=== PATIENT | female | born 1945 | race Caucasian/White ===

== ENCOUNTER 2016-11-27 22:25 | Emergency (ER) | payer OTHER, MEDICAID ==
[~2016-11-27] VITALS: Ht 160 cm; Wt 107.5 kg
[~2016-11-27 22:25] MED LIST: AMLO-218 PO; ATOR80TA75 PO; CARV25TA97 PO; CEPH-443 PO; FENO48TA4 PO; FURO-110 PO; GABA300C16 PO; GLIM4TAB55 PO; LEVO150T67 PO; LOSA100T7 PO; MTF1000T PO; NAPR-688 PO; OMEP20CA16 PO; SERT100T PO
[2016-11-27 22:30] VITALS: Ht 160 cm; Wt 107.5 kg
--- NOTE | 2016-11-28 03:47 | ERA ---
ER Documentation Chief Complaint Date/Time DATE: 11/28/16 TIME: 03:46 Chief Complaint Cough x2 week, HPI The patient is a 71-year-old female, presenting to the ER because of intermittent dry cough for the last 2 weeks, mostly mucous. She denies fever, chills, neck pain, chest pain, dyspnea, abdominal pain, vomiting, dysuria, diarrhea. She does not smoke or drink Past medical history: Diabetes mellitus, hypertension, dyslipidemia, hypothyroidism, panic disorder Past surgical history: Cholecystectomy, hysterectomy, 2 ROS All systems reviewed and are negative except as per history of present illness. Medications Home Meds Active Scripts Dextromethorphan Hb-Promethazine Hcl (Promethazine DM Syrup) 473 Ml Syrup, 10 ML PO Q6H Y for COUGH, #4 OZ Prov:KVNG WONG MD 11/28/16 Azithromycin* (Zithromax*) 250 Mg Tablet, 250 MG PO .ZPACK DIRECTED, #6 TAB TAKE 500 MG (2 TABS) THE FIRST DAY THEN 250 MG (1 TAB) DAYS 2-5 Prov:KVNG WONG MD 11/28/16 Furosemide* (Lasix*) 20 Mg Tablet, 20 MG PO DAILY, #7 TAB Prov:ROCHELLE CAT MD 03/09/16 Cephalexin* (Keflex*) 500 Mg Capsule, 500 MG PO TID for 7 Days, CAP Prov:ROCHELLE CAT MD 03/09/16 Reported Medications Gabapentin* (Gabapentin*) 300 Mg Capsule, 300 MG PO HS, #60 CAP 03/09/16 Amlodipine Besylate* (Norvasc*) 10 Mg Tablet, 10 MG PO DAILY, TAB 03/09/16 Glimepiride* (Amaryl*) 4 Mg Tablet, 4 MG PO WITH BREAKFAST, TAB 03/09/16 Losartan Potassium* (Losartan Potassium*) 100 Mg Tablet, 100 MG PO DAILY, TAB 03/09/16 Carvedilol* (Coreg*) 25 Mg Tablet, 25 MG PO BID, #60 TAB 03/09/16 Atorvastatin* (Atorvastatin*) 80 Mg Tablet, 80 MG PO QHS, #30 TAB 03/09/16 Omeprazole* (Omeprazole*) 20 Mg Capsule.dr, 20 MG PO DAILY, #30 CAP 03/09/16 Naproxen* (Naproxen*) 500 Mg Tablet, 500 MG PO BID Y for PAIN, TAB 03/09/16 Metformin* (Glucophage*) 1,000 Mg Tablet, 1000 MG PO BID, #60 TAB 03/09/16 Fenofibrate Nanocrystallized* (Fenofibrate*) 48 Mg Tablet, 54 MG PO DAILY, TAB 03/09/16 Sertraline Hcl* (Zoloft*) 100 Mg Tablet, 100 MG PO DAILY, #30 TAB 03/09/16 Levothyroxine Sodium* (Levothyroxine Sodium*) 150 Mcg Tablet, 150 MCG PO BEFORE BREAKFAST, #30 TAB 03/09/16 Allergies Allergies: Coded Allergies: diclofenac (Verified Allergy, Intermediate, vomiting, 11/27/16) Uncoded Allergies: NKDA (Allergy, Mild, 02/03/11) PMhx/Soc History of Surgery: Yes (CHOLECYSTECTOMY, HYSTERECTOMY, ) Anesthesia Reaction: No Hx Neurological Disorder: No Hx Respiratory Disorders: No Hx Cardiac Disorders: Yes (HTN, HIGH CHOLESTEROL ) Hx Psychiatric Problems: Yes (PANIC ATTACKS) Hx Miscellaneous Medical Probl: Yes (DM, ARTHRITIS ) Hx Alcohol Use: No Hx Substance Use: No Hx Tobacco Use: No Physical Exam Vitals Vital Signs Date Time Temp Pulse Resp B/P Pulse Ox O2 Delivery O2 Flow Rate FiO2 11/28/16 05:25 98.4 58 18 122/65 99 Room Air 11/28/16 04:40 60 20 98 21 11/28/16 04:22 57 16 128/51 99 Room Air 11/28/16 03:49 98.4 82 20 156/69 98 Room Air 11/27/16 22:30 98.4 74 20 177/77 98 Physical Exam Const: No acute distress. Head: Atraumatic. Eyes: Normal Conjunctiva. ENT: Normal External Ears, Nose and Mouth. Neck: Full range of motion. No meningismus. Resp: minimal Expiratory wheeze Cardio: Regular rate and rhythm, no murmurs. Abd: Soft, non distended, normal bowel sounds, non tender. Skin: No petechiae or rashes. Back: No midline or flank tenderness. Ext: No cyanosis, or edema. Neur: Awake and alert. No focal deficit Psych: Normal Mood and Affect. Results 24 hrs Current Medications Medications (Trade) Dose Ordered Sig/Chantel Route PRN Reason Start Time Stop Time Status Last Admin Dose Admin Levalbuterol (Xopenex Neb) 1.[address] [facility] 11/28/16 04:30 11/28/16 04:31 DC 11/28/16 04:42 Ipratropium [place] (Atrovent 0.02% (Neb)) 0.[address] [facility] 11/28/16 04:30 11/28/16 04:31 DC 11/28/16 04:42 Procedures/[place] [id number] Radiology Main Line: [phone] DIAGNOSTIC IMAGING REPORT Patient: OMERO FARAH : 1945 Age: 71 Sex: F MR #: [id number] DOS: 11/28/16 0417 Ordering MD: KVNG WONG MD Location: FTE Room/Bed: PROCEDURE: XR Chest. CLINICAL INDICATION: Cough and fever TECHNIQUE: An AP view of the chest was obtained. COMPARISON: Chest x-ray dated 03/09/2016 FINDINGS: There is prominence of the interstitial markings. No pleural effusion or pneumothorax is seen. The cardiomediastinal silhouette is mildly enlarged . Calcifications are seen within the aortic arch. The osseous structures demonstrate senescent changes. IMPRESSION: 1. Mild prominence of the interstitial markings, may reflect mild underlying interstitial edema or chronic lung changes. Overall, no significant interval change. 2. Mild cardiomegaly and aortic atherosclerosis. RPTAT: HH .Maria Del Rosario Cortes MD, MD Date Time Electronically viewed and signed by .Maria Del Rosario Cortes MD, MD on 11/28/2016 05 :09 .G/ CC: KVNG WONG MD MEDICAL MAKING DECISION: The patient is a 71-year-old female, presenting with acute bronchitis, was treated with Xopenex 1.25 mg and Atrovent 0.5 mg with good response. The differential diagnoses considered include but are not limited to asthma, COPD, pneumonia, pulmonary embolus, pleural effusion, congestive heart failure. Departure Diagnosis: Primary Impression: Bronchitis Condition: Good Comments She was discharged with Zithromax, promethazine dextromethorphan I discussed the findings with the patient. I advised the patient to follow-up with the primary physician in about 1-2 days, sooner if needed and return if any concern. KVNG WONG MD Nov 28, 2016 03:47
[2016-11-28] MEDS ORDERED: IPRATROPIUM (NEB) 0.5 MG/2.5 ML AMP HHN ONE (04:30)
[2016-11-28] MEDS ORDERED: LEVALBUTEROL (NEB) 1.25 MG/0.5 ML AMP HHN ONE (04:30)
--- NOTE | 2016-11-28 05:09 | RADRPT ---
PROCEDURE: XR Chest. CLINICAL INDICATION: Cough and fever TECHNIQUE: An AP view of the chest was obtained. COMPARISON: Chest x-ray dated 03/09/2016 FINDINGS: There is prominence of the interstitial markings. No pleural effusion or pneumothorax is seen. Th e cardiomediastinal silhouette is mildly enlarged . Calcifications are seen within the aortic arch. The osseous structures demonstrate senescent changes. IMPRESSION: 1. Mild prominence of the interstitial markings, may reflect mild underlying interstitial edema or chronic lung changes. Overall, no significant interval change. 2. Mild cardiomegaly and aortic atherosclerosis. RPTAT: HH .Maria Del Rosario Cortes MD, MD Date Time Electronically viewed and signed by .Maria Del Rosario Cortes MD, on 11/28/2016 05:09 .Reta/
[2016-11-28] MEDS ORDERED: AZIT250T94 PO (05:18)
[2016-11-28] MEDS ORDERED: D-ME473S18 PO (05:18)
[2016-11-28 05:25] VITALS: BP 122/65; PULSE 58; RESP 18; TEMP 98.4
== END 2016-11-28 05:25 | disposition home or self-care (01) ==
LOC: E/R 22:25 → FTE 11-28 05:25
DX: J20.9 Acute bronchitis, unspecified (principal); I10 Essential (primary) hypertension; E11.9 Type 2 diabetes mellitus without complications; E03.9 Hypothyroidism, unspecified; Z79.84 Long term (current) use of oral hypoglycemic drugs
CPT/HCPCS: 71010; 94664

== ENCOUNTER 2017-07-22 18:17 | Emergency (ER) | payer OTHER, MEDICAID ==
[~2017-07-22] VITALS: Ht 160 cm; Wt 100.0 kg
[~2017-07-22 18:17] MED LIST changes: +AZIT250T94 PO; +D-ME473S18 PO
[2017-07-22 18:19] VITALS: Ht 160 cm; Wt 100.0 kg
[2017-07-22] MEDS ORDERED: ACET500C5 PO (20:45)
[2017-07-22] MEDS ORDERED: AMOX1TAB10 PO (20:45)
--- NOTE | 2017-07-23 00:23 | ERD ---
ER Documentation Chief Complaint Chief Complaint HAD TOOTH EXTRACTION 2 WEEKS AGO, HAS STILL ALIZA AT THE SITE HPI 72-year-old female patient with a past medical history of diabetes and hypertension, thyroid problems, gastritis, arthritis, presents to the ED complaining of left-sided dental pain that started intermittently for the past 15 days. Reports that she saw a dentist and had a tooth extraction 2 weeks ago and still has pain at the site. Reports that she did see the dentist and they recommended to see a dental specialist. States that she finished taking the amoxicillin and was taking Advil however reports that it did not provide any relief. Denies any fever, chest pain, shortness of breath, nausea, vomiting, diarrhea, dyspnea on exertion, orthopnea. ROS All systems reviewed and are negative except as per history of present illness. Medications Home Meds Active Scripts Acetaminophen* (Tylophen*) 500 Mg Capsule, 1 CAP PO Q6H Y for PAIN AND OR ELEVATED TEMP, #20 CAP Prov:TOSHIA CERVANTES PA-C 07/22/17 Amoxicillin/Potassium Clav (Amox-Clav 875-125 mg Tablet) 875-125 mg Tab, 1 TAB PO BID for 7 Days, #14 TAB Prov:TOSHIA CERVANTES PA-C 07/22/17 Dextromethorphan Hb-Promethazine Hcl (Promethazine DM Syrup) 473 Ml Syrup, 10 ML PO Q6H Y for COUGH, #4 OZ Prov:KVNG WONG MD 11/28/16 Azithromycin* (Zithromax*) 250 Mg Tablet, 250 MG PO .ZPACK DIRECTED, #6 TAB TAKE 500 MG (2 TABS) THE FIRST DAY THEN 250 MG (1 TAB) DAYS 2-5 Prov:KVNG WONG MD 11/28/16 Furosemide* (Lasix*) 20 Mg Tablet, 20 MG PO DAILY, #7 TAB Prov:ROCHELLE CAT MD 03/09/16 Cephalexin* (Keflex*) 500 Mg Capsule, 500 MG PO TID for 7 Days, CAP Prov:ROCHELLE CAT MD 03/09/16 Reported Medications Gabapentin* (Gabapentin*) 300 Mg Capsule, 300 MG PO HS, #60 CAP 03/09/16 Amlodipine Besylate* (Norvasc*) 10 Mg Tablet, 10 MG PO DAILY, TAB 03/09/16 Glimepiride* (Amaryl*) 4 Mg Tablet, 4 MG PO WITH BREAKFAST, TAB 03/09/16 Losartan Potassium* (Losartan Potassium*) 100 Mg Tablet, 100 MG PO DAILY, TAB 03/09/16 Carvedilol* (Coreg*) 25 Mg Tablet, 25 MG PO BID, #60 TAB 03/09/16 Atorvastatin* (Atorvastatin*) 80 Mg Tablet, 80 MG PO QHS, #30 TAB 03/09/16 Omeprazole* (Omeprazole*) 20 Mg Capsule.dr, 20 MG PO DAILY, #30 CAP 03/09/16 Naproxen* (Naproxen*) 500 Mg Tablet, 500 MG PO BID Y for PAIN, TAB 03/09/16 Metformin* (Glucophage*) 1,000 Mg Tablet, 1000 MG PO BID, #60 TAB 03/09/16 Fenofibrate Nanocrystallized* (Fenofibrate*) 48 Mg Tablet, 54 MG PO DAILY, TAB 03/09/16 Sertraline Hcl* (Zoloft*) 100 Mg Tablet, 100 MG PO DAILY, #30 TAB 03/09/16 Levothyroxine Sodium* (Levothyroxine Sodium*) 150 Mcg Tablet, 150 MCG PO BEFORE BREAKFAST, #30 TAB 03/09/16 Allergies Allergies: Coded Allergies: diclofenac (Verified Allergy, Intermediate, vomiting, 11/27/16) PMhx/Soc History of Surgery: Yes (Cholecystectomy,Hysterectomy,) Anesthesia Reaction: No Hx Neurological Disorder: No Hx Respiratory Disorders: No Hx Cardiac Disorders: Yes (HTN) Hx Psychiatric Problems: Yes (Anxiety) Hx Miscellaneous Medical Probl: Yes (DM,Arthritis,Hypothyroidism) Hx Alcohol Use: No Hx Substance Use: No Hx Tobacco Use: No Smoking Status: Never smoker Physical Exam Vitals Vital Signs Date Time Temp Pulse Resp B/P Pulse Ox O2 Delivery O2 Flow Rate FiO2 07/22/17 18:19 97.7 73 18 155/67 99 Physical Exam Const: Mrs-eza-[id number], well-nourished. In no acute distress. Head: Atraumatic, normocephalic Eyes: Normal Conjunctiva without injection. No purulent discharge. PERRL. EOMI ENT: Normal external ear. Ear canal without erythema. Tympanic membrane pearly mendez without effusion or bulging. Nasal canal clear with normal turbinates. Moist oropharynx without tonsillar exudates. Non-erythematous pharynx. Uvula midline. No drooling. No trismus. Erythema noted at the gumline near the left sided mandibular molars. No fluctuance. Tooth extraction noted. No bleeding noted. Neck: Full range of motion. No meningismus. No cervical lymphadenopathy. Resp: Clear to auscultation bilaterally. No wheezing, rhonchi, rales, or crackles. No accessory muscle use. No retractions. Cardio: Regular rate and rhythm. No murmurs, rubs or gallops. Abd: Soft, non tender, non distended. Normal bowel sounds. No palpable masses. No rebound tenderness. No guarding. Skin: No petechiae or rashes Back: No midline tenderness. No CVA tenderness. Ext: No cyanosis, or edema. Neur: Awake and alert. Psych: Normal Mood and Affect Procedures/MDM 72-year-old female patient with no significant past medical history presents to the ED complaining of a tooth extraction that occurred 2 weeks ago and still has pain at the site. Patient is afebrile nontoxic appearing. Patient has normal vital signs. Patient was given a prescription for Augmentin and Tylenol for her pain instructed to follow-up with a dental specialist tomorrow. Low suspicion for acute myocardial infarction, pneumothorax, pneumonia, cardiac tamponade, pulmonary embolism, pleural effusion, AAA, aortic dissection, Boerhaave's syndrome, cardiac dysrhythmias,meningitis, intracranial bleed, seizure, stroke, TIA or other emergent conditions. Patient is appropriate for outpatient antibiotics. Patient's physical exam include lungs which were clear to auscultation and a normal pulse oximetry. Bilateral ears pearly beltran. No tenderness to palpation of tragus or mastoid. Low suspicion for mastoiditis, otitis externa, otitis media. Patient is speaking in full sentences. There is a low suspicion for pneumonia, epiglottitis, croup, sinusitis, peritonsillar abscess, hands foot mouth disease, Quoc's angina, dental abscess, retropharyngeal abscess, meningitis, sepsis, acute abdomen or other emergent conditions. Follow up with dental specialist in 1-2 days. Instructed patient to return to the ED sooner for any worsening symptoms. Patient's questions were answered. Patient understood and agreed with discharge plan. Patient discharged stable. Departure Diagnosis: Primary Impression: Toothache Condition: Stable Patient Instructions: Dental Pain Referrals: [facility] YOU HAVE RECEIVED A MEDICAL SCREENING EXAM AND THE RESULTS INDICATE THAT YOU DO NOT HAVE A CONDITION THAT REQUIRES URGENT TREATMENT IN THE EMERGENCY DEPARTMENT. FURTHER EVALUATION AND TREATMENT OF YOUR CONDITION CAN WAIT UNTIL YOU ARE SEEN IN YOUR DOCTORS OFFICE WITHIN THE NEXT 1-2 DAYS. IT IS YOUR RESPONSIBILITY TO MAKE AN APPOINTMENT FOR FOLOW-UP CARE. IF YOU HAVE A PRIMARY DOCTOR --you should call your primary doctor and schedule an appointment IF YOU DO NOT HAVE A PRIMARY DOCTOR YOU CAN CALL OUR PHYSICIAN REFERRAL HOTLINE AT IF YOU CAN NOT AFFORD TO SEE A PHYSICIAN YOU CAN CHOSE FROM THE FOLLOWING [facility] [address] [facility]. [facility] [address] [facility]. [facility] [address] [facility] [facility] [address] [facility]. [facility] [address] [facility]. [facility]. [address] [facility]. [facility] YOU HAVE RECEIVED A MEDICAL SCREENING EXAM AND THE RESULTS INDICATE THAT YOU DO NOT HAVE A CONDITION THAT REQUIRES URGENT TREATMENT IN THE EMERGENCY DEPARTMENT. FURTHER EVALUATION AND TREATMENT OF YOUR CONDITION CAN WAIT UNTIL YOU ARE SEEN IN YOUR DOCTORS OFFICE WITHIN THE NEXT 1-2 DAYS. IT IS YOUR RESPONSIBILITY TO MAKE AN APPOINTMENT FOR FOLOW-UP CARE. IF YOU HAVE A PRIMARY DOCTOR --you should call your primary doctor and schedule and appointment IF YOU DO NOT HAVE A PRIMARY DOCTOR YOU CAN CALL OUR PHYSICIAN REFERRAL HOTLINE AT . IF YOU CAN NOT AFFORD TO SEE A PHYSICIAN YOU CAN CHOSE FROM THE FOLLOWING [facility] INSTITUTIONS: [facility] [address] [place] [address] [facility] [address] [place] [address] [facility] [address] [place] [address] [facility] URGENT CARE/SPECIALTIES [facility] DENTIST ([facility] walk in clinic) Additional Instructions: Visite a garcia especialista dental maana para un EXAMEN. Regrese a estas instalaciones si no se mejora stacy esperbamos o stacy le dijimos - fiebre, dificultad para tragar, dificultad para respirar, vmitos. TOSHIA CERVANTES PA-C Jul 23, 2017 00:23
== END 2017-07-22 21:11 | disposition home or self-care (01) ==
LOC: FTE 18:17
DX: K08.89 Other specified disorders of teeth and supporting structures (principal); E11.9 Type 2 diabetes mellitus without complications; I10 Essential (primary) hypertension; E03.9 Hypothyroidism, unspecified; Z79.84 Long term (current) use of oral hypoglycemic drugs
CPT/HCPCS: 99283

== ENCOUNTER 2017-12-28 17:48 | Emergency (ER) | END 2017-12-28 22:36 | disposition home or self-care (01) ==

== ENCOUNTER 2019-02-28 12:22 | Day surgery (SDC) | payer MEDICARE, OTHER ==
[~2019-02-28] VITALS: Ht 152.4 cm; Wt 97.2 kg
[2019-02-28] VITALS (12 sets, daily range): BP systolic 78–130; BP diastolic 54–78; PULSE 63–79; RESP 16–23; Ht 152.4 cm; Wt 97.2 kg
[~2019-02-28 12:22] MED LIST changes: +ACET500C5 PO; +ALBU8.5H8 INH; +AMOX1TAB10 PO; +ATOR-2 PO; -ATOR80TA75 PO; +AZIT250T PO; -AZIT250T94 PO; +CEFAZOLIN 2 GM/50 ML (PMX) 50 ML IVPB ONE; +INHA1SPA19 MC; +LACTATED RINGER'S 1,000 ML IV SCH; -LEVO150T67 PO; +LEVO150T7 PO; +LOSA100T15 PO; -LOSA100T7 PO; +PRED20TA PO
[2019-02-28] MEDS ORDERED: BUPIVACAINE 0.25% (MPF) 30 ML INJ ONE (13:57)
[2019-02-28] MEDS ORDERED: TRIAMCINOLONE ACET 40 MG/ML INJ ONE (13:57)
[2019-02-28] MEDS ORDERED: CARB1TAB PO (14:00)
[2019-02-28] MEDS ORDERED: FURO40TA4 PO (14:00)
[2019-02-28] MEDS ORDERED: NOVO3I SC ×2 (14:00)
[2019-02-28] MEDS ORDERED: ATOR40TA68 ORAL (14:00)
[2019-02-28] MEDS ORDERED: FER325 PO (14:00)
[2019-02-28] MEDS ORDERED: IRBE300T15 PO (14:00)
[2019-02-28] MEDS ORDERED: VALP250C3 PO (14:00)
[2019-02-28] MEDS ORDERED: ARIP15TA3 PO (14:00)
[2019-02-28] MEDS ORDERED: LEVEM SC* (14:00)
[2019-02-28] MEDS ORDERED: LEVEM SC (14:00)
--- NOTE | 2019-02-28 14:14 | HPN ---
Date/Time of Note Date/Time of Note DATE: 02/28/19 TIME: 14:14 Interval H&P Admission Note Pt. seen H&P reviewed: No system changes SANGEETHA RICE Feb 28, 2019 14:14
--- NOTE | 2019-02-28 14:21 | PREAC ---
Date/Time of Note Date/Time of Note DATE: 02/28/19 TIME: 14:17 Anesthesia Eval and Record Evaluation Time Pre-Procedure Interview DATE: 02/28/19 TIME: 14:17 Age 73 Sex female NPO: 8 hrs Preoperative diagnosis PAINFUL 2ND HAMMERTOE LEFT Planned procedure ARTHRODESIS 2ND PIP JOINT LEFT FOOT WITH INTERNAL FIXATION Past Medical History Past Medical History: Includes Cardio: HTN, Dyslipidemia, [place] (10 YEARS AGO) Endo: Diabetes, Hypothyroid Pulm: Smoking Hx, Sleep Apnea, Other Musculoskeletal: Other (PARKINSONS) GI: Morbid obesity Surgery & Anesthesia Issues No known issue Meds Anticoagulation: No Beta Manuelito within 24 hr: No Reason Beta Manuelito not given: Pt. not on B-Manuelito Reported Medications Insulin Aspart* (Novolog Insulin Pen*) 100 Unit/Ml Soln, 8 UNIT SC WITH LUNCH DINNER, EA 02/28/19 Insulin Aspart* (Novolog Insulin Pen*) 100 Unit/Ml Soln, 18 UNIT SC WITH BREAKFAST, EA 02/28/19 Insulin Detemir (Levemir) 100 Unit/1 Ml Vial, 25 SC QHS 02/28/19 Insulin Detemir (Levemir) 100 Unit/1 Ml Vial, 40 SC* QAM 02/28/19 Valproic Acid* (Valproic Acid*) 250 Mg Capsule, 250 MG PO QHS, CAP 02/28/19 Aripiprazole* (Abilify*) 15 Mg Tablet, 15 MG PO DAILY, #30 TAB 02/28/19 Furosemide* (Furosemide*) 40 Mg Tablet, 40 MG PO On Thu,Thu,Thursday, TAB 02/28/19 Carbidopa/Levodopa (Sinemet 10-100 mg Tablet) 1 Each Tablet, 1 TAB PO TID, TAB 02/28/19 Atorvastatin* (Atorvastatin*) 40 Mg Tablet, 1 TAB ORAL QHS 02/28/19 Irbesartan* (Irbesartan*) 300 Mg Tablet, 300 MG PO DAILY, TAB 02/28/19 Ferrous Sulfate* (Ferrous Sulfate*) 325 Mg Tabec, 325 MG PO DAILY, TAB 02/28/19 Carvedilol* (Coreg*) 25 Mg Tablet, 25 MG PO BID, #60 TAB 03/09/16 Sertraline Hcl* (Zoloft*) 100 Mg Tablet, 100 MG PO DAILY, #30 TAB 7/17/16 Levothyroxine Sodium* (Levothyroxine Sodium*) 150 Mcg Tablet, 150 MCG PO BEFORE BREAKFAST, #30 TAB 03/09/16 Discontinued Reported Medications Gabapentin* (Gabapentin*) 300 Mg Capsule, 300 MG PO HS, #60 CAP 03/09/16 Amlodipine Besylate* (Norvasc*) 10 Mg Tablet, 10 MG PO DAILY, TAB 03/09/16 Glimepiride* (Amaryl*) 4 Mg Tablet, 4 MG PO WITH BREAKFAST, TAB 03/09/16 Losartan Potassium* (Losartan Potassium*) 100 Mg Tablet, 100 MG PO DAILY, TAB 03/09/16 Atorvastatin* (Atorvastatin*) 80 Mg Tablet, 80 MG PO QHS, #30 TAB 03/09/16 Omeprazole* (Omeprazole*) 20 Mg Capsule.dr, 20 MG PO DAILY, #30 CAP 03/09/16 Naproxen* (Naproxen*) 500 Mg Tablet, 500 MG PO BID PRN for PAIN, TAB 03/09/16 Metformin* (Glucophage*) 1,000 Mg Tablet, 1000 MG PO BID, #60 TAB 03/09/16 Fenofibrate Nanocrystallized* (Fenofibrate*) 48 Mg Tablet, 54 MG PO DAILY, TAB 03/09/16 Discontinued Scripts Prednisone* (Prednisone*) 20 Mg Tab, 40 MG PO DAILY for 4 Days, TAB Prov:NORMA BROUSSARD MD 12/28/17 Inhaler, Assist Devices (Aerochamber Mini) 1 Each Spacer, 1 EACH MC DIRECTED, #1 EA 0 Refills Prov:NORMA BROUSSARD MD 12/28/17 Albuterol Sulfate* (Proair HFA*) 8.5 Gm Hfa.aer.ad, 2 PUFF INH Q4H PRN for WHEEZING AND SOB, #1 INHALER Prov:NORMA BROUSSARD MD 12/28/17 Amoxicillin/Potassium Clav (Amox-Clav 875-125 mg Tablet) 875-125 mg Tab, 1 TAB PO BID for 7 Days, #14 TAB Prov:NORMA BROUSSARD MD 12/28/17 Acetaminophen* (Tylophen*) 500 Mg Capsule, 1 CAP PO Q6H PRN for PAIN AND OR ELEVATED TEMP, #20 CAP Prov:TOSHIA CERVANTES PA-C 07/22/17 Amoxicillin/Potassium Clav (Amox-Clav 875-125 mg Tablet) 875-125 mg Tab, 1 TAB PO BID for 7 Days, #14 TAB Prov:TOSHIA CERVANTES PA-C 07/22/17 Dextromethorphan Hb-Promethazine Hcl (Promethazine DM Syrup) 473 Ml Syrup, 10 ML PO Q6H PRN for COUGH, #4 OZ Prov:KVNG WONG MD 11/28/16 Azithromycin* (Zithromax*) 250 Mg Tablet, 250 MG PO .ZPACK DIRECTED, #6 TAB TAKE 500 MG (2 TABS) THE FIRST DAY THEN 250 MG (1 TAB) DAYS 2-5 Prov:KVNG WONG MD 11/28/16 Furosemide* (Lasix*) 20 Mg Tablet, 20 MG PO DAILY, #7 TAB Prov:ROCHELLE CAT MD 03/09/16 Cephalexin* (Keflex*) 500 Mg Capsule, 500 MG PO TID for 7 Days, CAP Prov:ROCHELLE CAT MD 03/09/16 Current Medications Lactated Ringer's 1,000 ml @ 25 mls/hr Q24H IV ; Start 02/28/19 at 06:00; Stop 02/28/19 at 22:00 Meds reviewed: Yes Allergies Coded Allergies: diclofenac (Verified Allergy, Intermediate, vomiting, 02/28/19) Allergies Reviewed: Yes Labs/Studies Labs Reviewed: Reviewed by anesthesiologist test: N/A Studies: ECG, CXR Pre-procedure Exam Last vitals Vital Signs Date Temp Pulse Resp B/P (MAP) Pulse Ox O2 O2 Flow FiO2 Time Delivery Rate 02/28/19 96.9 77 16 108/55 95 Room Air 13:23 (72) Airway: Adequate mouth opening Mallampati: Mallampati II Teeth: Normal Lung: Normal Heart: Normal ASA Physical Status ASA physical status: 3 Emergency: None Planned Anesthetic General/MAC: ETT Pre-operative Attestations Prior to commencing anesthesia and surgery, the patient was re-evaluated, there was verification of: *The patient's identity *The results of appropriate recent lab work and preoperative vital signs *The above evaluation not changing prior to induction *Anesthetic plan, risk benefits, alternative and complications discussed with patient/family; questions answered; patient/family understands, accepts and wishes to proceed. ARACELI ROBBINS Feb 28, 2019 14:21
[2019-02-28] MEDS ORDERED: MIDAZOLAM 1 MG/ML 2 ML INJ ONE (14:39)
[2019-02-28] MEDS ORDERED: FENTAnyl 50 MCG/ML VIAL ONE (14:39)
[2019-02-28] MEDS ORDERED: PROPOFOL 100 ML ONE (14:40)
[2019-02-28] MEDS ORDERED: LIDOCAINE 2% (SDV) 5 ML INJ ONE (15:35)
[2019-02-28] MEDS ORDERED: CEFAZOLIN 1 GM INJ ONE (15:35)
--- NOTE | 2019-02-28 15:40 | SIPON ---
Date/Time of Note Date/Time of Note DATE: 02/28/19 TIME: 15:38 Operative Report Preoperative Diagnosis painful hammertope, 2nd, left foot Postoperative Diagnosis same Operation/Procedure Performed fusion of PIP joint with Toemate, 2nd toe, left foot Surgeon see signature line orthotics prosthetics assistant none Anesthesia: MAC Estimated blood loss: none Transfusion Required none Specimen none Grafts/Implants ToeMate Implant, 2nd toe, left Complications none SANGEETHA RICE Feb 28, 2019 15:40
--- NOTE | 2019-02-28 15:42 | PDOCDIS ---
Discharge Instructions CONDITION [id number] Patient Condition: [id number] Good HOME CARE INSTRUCTIONS: [id number] Diet Instructions: [id number] Regular ACTIVITY: [id number] Activity Restrictions [id number] Weight-bear only with Post-op Comment: shey mendez VIJAY Feb 28, 2019 15:42
--- NOTE | 2019-02-28 15:45 | PAC ---
Date/Time of Note Date/Time of Note DATE: 02/28/19 TIME: 15:44 Post-Anesthesia Notes Post-Anesthesia Note Last documented vital signs Vital Signs Date Temp Pulse Resp B/P (MAP) Pulse Ox O2 O2 Flow FiO2 Time Delivery Rate 02/28/19 96.9 77 16 108/55 95 Room Air 1544 (72) Activity: WNL Respiratory function: WNL Cardiovascular function: WNL Mental status: Baseline Pain reasonably controlled: Yes Hydration appropriate: Yes Nausea/Vomiting absent: Yes MEMO CONNELLY Feb 28, 2019 15:45
[2019-02-28] MEDS ORDERED: hydrALAzine 20 MG INJ IV PRN (16:00)
[2019-02-28] MEDS ORDERED: ONDANSETRON 4 MG INJ IV PRN (16:00)
[2019-02-28] MEDS ORDERED: DIPHENHYDRAMINE 50 MG INJ IV PRN (16:00)
[2019-02-28] MEDS ORDERED: ALBUTEROL 0.083% (NEB) 2.5 MG/3 ML AMP HHN PRN (16:00)
[2019-02-28] MEDS ORDERED: MEPERIDINE 25 MG INJ IV PRN (16:00)
[2019-02-28] MEDS ORDERED: MIDAZOLAM 1 MG/ML 2 ML INJ IV PRN (16:00)
[2019-02-28] MEDS ORDERED: EPHEDrine 25 MG/5 ML SYG IV PRN (16:00)
[2019-02-28] MEDS ORDERED: METOCLOPRAMIDE 10 MG INJ IV PRN (16:00)
[2019-02-28] MEDS ORDERED: OXYCODONE/ACETAMINOPHEN (5/325) TAB PO PRN ×2 (16:00)
[2019-02-28] MEDS ORDERED: ALBUMIN HUMAN 5% 250 ML IV PRN (16:00)
[2019-02-28] MEDS ORDERED: LABETALOL HCL 20MG INJ IV PRN (16:00)
[2019-02-28] MEDS ORDERED: FENTAnyl 50 MCG/ML VIAL IV PRN ×3 (16:00)
[2019-02-28] MEDS ORDERED: KETOROLAC 30 MG INJ IV PRN (16:00)
--- NOTE | 2019-03-01 00:21 | OPR ---
DATE OF OPERATION: 02/28/2019 PREOPERATIVE DIAGNOSIS: Painful hammertoe, second, left foot. POSTOPERATIVE DIAGNOSIS: Painful hammertoe, second, left foot. OPERATION PERFORMED: Arthrodesis of PIP joint, second toe, left foot. ANESTHESIA: Local with MAC. DESCRIPTION OF PROCEDURE: The patient was brought into the OR and placed on the OR table in a secure d supine position. After the foot was prepped and draped in the usual sterile manner, 10 mL of 0.5% Marcaine was injected for anesthesia in the form of digital block of the second toe. An Esmarch band age was used to exsanguinate the blood and the tourniquet was then inflated to 250 mmHg. A 15 blade was used to make an incision over the dorsal aspect of the second toe extending proximally over the M TP joint. The incision was deepened using sharp and blunt dissection. The extensor tendon was trans ected and the joint of the PIP was visualized. After all soft tissue structures were freed, a sagitt al saw was used to resect the articular cartilage of the head of the proximal phalanx and the base of the middle phalanx. After copious lavage, a ToeMATE implant was inserted into the proximal phalanx as well as into the middle phalanx and this was connected using the pin provided. The angle of the s econd toe looked adequate. After copious lavage, the extensor tendon was reapproximated using 4-0 Vi cryl. The skin and subcutaneous structures were reapproximated using 4-0 Vicryl and 4-0 nylon. One mL of triamcinolone 40 mg per mL was injected into the second toe. Xeroform gauze, Kerlix, Coban was used for postop dressing. Upon deflation of the tourniquet, immediate hyperemia to digits 1 through 5 of the left foot was noted. The patient left the OR with vital signs stable. The patient given a ll postop instructions including to only weightbear with the postop shoe. Dictated By: SANGEETHA CHRISTY/ISMA Conf#: [id number] DID#: [id number]
== END 2019-02-28 17:33 | disposition home or self-care (01) ==
LOC: SDS 12:22
PROVIDERS: ATTEND Podiatrist
DX: M20.42 Other hammer toe(s) (acquired), left foot (principal); E11.9 Type 2 diabetes mellitus without complications; E78.5 Hyperlipidemia, unspecified; E03.9 Hypothyroidism, unspecified; Z85.9 Personal history of malignant neoplasm, unspecified; G20 Parkinson's disease; Z79.84 Long term (current) use of oral hypoglycemic drugs; Z79.4 Long term (current) use of insulin; I25.2 Old myocardial infarction; E66.01 Morbid (severe) obesity due to excess calories; Z68.41 Body mass index [BMI] 40.0-44.9, adult
CPT/HCPCS: 28285; 82962; J0690; J2250; J3010